=== PATIENT | male | born 1990 | race Caucasian/White ===

== ENCOUNTER 2019-11-19 09:09 | Emergency (ER) | payer MEDICAID, OTHER, SELFPAY ==
[~2019-11-19] VITALS: Ht 162.6 cm; Wt 63.5 kg
[~2019-11-19 09:09] MED LIST: ARIP10TA8 PO; ARIP400S IM; BACIO TP
[2019-11-19] MEDS ORDERED: HYDR50CA9 PO (09:45)
[2019-11-19] MEDS ORDERED: ESCI20TA PO (09:45)
[2019-11-19] MEDS ORDERED: PALI6TAB6 PO (09:45)
[2019-11-19 11:26] VITALS: BP 163/90
== END 2019-11-19 13:58 | disposition short-term general hospital (02) ==
LOC: EMS 09:10
DX: F20.9 Schizophrenia, unspecified (principal); Z73.6 Limitation of activities due to disability

== ENCOUNTER 2020-05-31 09:07 | Inpatient (IN) | payer MEDICAID, OTHER ==
[~2020-05-31] VITALS: Ht 165.1 cm; Wt 64.0 kg
[~2020-05-31 09:07] MED LIST changes: -ARIP10TA8 PO; -ARIP400S IM; -BACIO TP; +ESCI20TA87 PO; +HYDR50CA9 PO; +PALI6TAB6 PO
[2020-05-31] MEDS ORDERED: PALI9TAB15 PO (09:27)
[2020-05-31] MEDS ORDERED: LORazepam 1 MG TABLET PO ONE (09:30)
[2020-05-31] MEDS ORDERED: HALOPERIDOL 5 MG TABLET PO ONE (09:30)
[2020-05-31 14:12] LABS: AMPHET/METH SCREEN,URINE NEGATIVE (NEGATIVE); BARBITURATE SCREEN, URINE NEGATIVE (NEGATIVE); BENZODIAZEPINES SCREEN,URINE NEGATIVE (NEGATIVE); CANNABINOID SCREEN,URINE POSITIVE (NEGATIVE); COCAINE SCREEN,URINE NEGATIVE (NEGATIVE); METHADONE SCREEN, URINE NEGATIVE (NEGATIVE); OPIATE SCREEN,URINE NEGATIVE (NEGATIVE); PHENCYCLIDINE SCREEN,URINE NEGATIVE (NEGATIVE)
[2020-05-31 18:59] LABS: COVID AG,FIA SOURCE NASOPHARYNGEAL
[2020-05-31] MEDS ORDERED: ZOLPIDEM TARTRATE 10 MG TABLET PO PRN (19:15)
[2020-05-31 20:15] LABS: APPEARANCE,URINE CLEAR (CLEAR); GLUCOSE, URINE (UA) NEGATIVE (NEGATIVE); KETONES,URINE 15 mg/dL (NEGATIVE); LEUKOCYTE ESTERASE ,URINE NEGATIVE (NEGATIVE); NITRATE,URINE NEGATIVE (NEGATIVE); OCCULT BLOOD,URINE NEGATIVE (NEGATIVE); PROTEIN,URINE TRACE (NEGATIVE); UROBILINOGEN,URINE 0.2 mg/dL (<=1.0)
[2020-05-31 20:19] LABS: BILIRUBIN,URINE PRELIM. POSITIVE (NEGATIVE)
[2020-05-31 20:30] LABS: BACTERIA,URINE Few /HPF (None Seen); RBC,URINE 0-2 /HPF (0-2); WBC,URINE 0-2 /HPF (0-5)
[2020-05-31 20:31] LABS: MUCUS,URINE Few LPF (None Seen); SQUAMOUS EPITHELIAL CELL,UR Few /LPF (None Seen)
[2020-05-31 21:33] VITALS: BP 128/82
[2020-05-31] MEDS ORDERED: INFLUENZA VIRUS VACCINE QVS 2020-21 (6MO+)/PF 60 MCG/0.5 ML SYRINGE IM ONE (22:00)
[2020-06-01 06:11] VITALS: BP 122/78
[2020-06-01] MEDS ORDERED: MAGNESIUM HYDROXIDE SUSPENSION 30 ML UDCUP PO PRN (06:45)
[2020-06-01] MEDS ORDERED: LOPERAMIDE HCL 2 MG CAPSULE PO PRN (06:45)
[2020-06-01] MEDS ORDERED: ALBUTEROL SULFATE HFA 90 MCG/PUFF 8 GM INHALER IH PRN (06:45)
[2020-06-01] MEDS ORDERED: ONDANSETRON HCL 4 MG TABLET PO PRN (06:45)
[2020-06-01] MEDS ORDERED: MAG HYDROX/AL HYDROX/SIMETH ES 30 ML SUSPENSION UDCUP PO PRN (06:45)
[2020-06-01] MEDS ORDERED: GuaiFENesin/D-METHORPHAN [SUGAR-FREE] 200-20MG/10 ML SYRUP UDCUP PO PRN (06:45)
[2020-06-01] MEDS ORDERED: PETROLATUM,WHITE 28 GM JELLY TP PRN (06:45)
[2020-06-01] MEDS ORDERED: CloNIDine HCL 0.1 MG TABLET PO PRN (06:45)
[2020-06-01] MEDS ORDERED: IBUPROFEN 400 MG TABLET PO PRN (06:45)
[2020-06-01] MEDS ORDERED: ACETAMINOPHEN 325 MG TABLET PO PRN (06:45)
[2020-06-01] MEDS ORDERED: DOCUSATE SODIUM 100 MG CAPSULE PO PRN (06:45)
[2020-06-01 09:57] VITALS: BP 123/77
[2020-06-01] MEDS: LORazepam 2 MG TABLET PO PRN ×2 (13:59→18:04)
[2020-06-01 16:22] VITALS: BP 112/62
[2020-06-01] MEDS: HALOPERIDOL 5 MG TABLET PO PRN (18:04)
[2020-06-01] MEDS: NICOTINE 14 MG/24 HOUR PATCH TD PRN (18:10)
[2020-06-02 08:12] VITALS: BP 111/67
[2020-06-02] MEDS: PALIPERIDONE 9 MG ER TABLET PO SCH (08:21)
[2020-06-02 16:30] VITALS: BP 120/70
[2020-06-02] MEDS: LORazepam 2 MG TABLET PO PRN (16:50)
[2020-06-03 04:04] VITALS: BP 118/80
[2020-06-03 08:12] VITALS: BP 119/68
[2020-06-03] MEDS: PALIPERIDONE 9 MG ER TABLET PO SCH (08:43)
[2020-06-03] MEDS: LORazepam 2 MG TABLET PO PRN ×2 (08:43→13:48)
[2020-06-03] MEDS: HALOPERIDOL 5 MG TABLET PO PRN (09:11)
[2020-06-03] MEDS ORDERED: DiphenhydrAMINE HCL 50 MG/ML VIAL ONE (09:33)
[2020-06-03] MEDS ORDERED: HALOPERIDOL LACTATE 5 MG/ML VIAL ONE (09:33)
[2020-06-03] MEDS ORDERED: LORazepam 2 MG/ML VIAL ONE (09:33)
[2020-06-03] MEDS ORDERED: LORazepam 2 MG/ML VIAL IM ONE (09:45)
[2020-06-03] MEDS ORDERED: HALOPERIDOL LACTATE 5 MG/ML VIAL IM ONE (09:45)
[2020-06-03] MEDS ORDERED: DiphenhydrAMINE HCL 50 MG/ML VIAL IM ONE (09:45)
[2020-06-03] MEDS: NICOTINE 14 MG/24 HOUR PATCH TD PRN (13:48)
[2020-06-03 16:20] VITALS: BP 113/71
[2020-06-04 08:12] VITALS: BP 110/65
[2020-06-04] MEDS: LORazepam 2 MG TABLET PO PRN (09:35)
[2020-06-04] MEDS: PALIPERIDONE 9 MG ER TABLET PO SCH (09:35)
[2020-06-04] MEDS: NICOTINE 14 MG/24 HOUR PATCH TD PRN (14:30)
[2020-06-05 04:17] VITALS: BP 123/67
[2020-06-05 08:44] VITALS: BP 134/89
[2020-06-05] MEDS: PALIPERIDONE 9 MG ER TABLET PO SCH (09:16)
[2020-06-05] MEDS: NICOTINE 14 MG/24 HOUR PATCH TD PRN (09:16)
[2020-06-05] MEDS ORDERED: GABA-1181 PO (15:39)
[2020-06-05 16:16] VITALS: BP 138/78
[2020-06-05] MEDS ORDERED: GABAPENTIN 300 MG CAPSULE PO SCH (17:00)
== END 2020-06-05 18:22 | disposition home or self-care (01) | DRG 750 ==
LOC: EMS 09:36 → B3A 19:07
PROVIDERS: ADMIT Psychiatry & Neurology Psychiatry; ATTEND Psychiatry & Neurology Psychiatry
DX: F20.0 Paranoid schizophrenia (principal); F12.90 Cannabis use, unspecified, uncomplicated; F94.0 Selective mutism; F99 Mental disorder, not otherwise specified; Z20.828 Contact with and (suspected) exposure to other viral communicable diseases; Z91.14 Patient's other noncompliance with medication regimen; Z28.21 Immunization not carried out because of patient refusal; Z79.899 Other long term (current) drug therapy
CPT/HCPCS: 87426; 90686; J1200; J1630; J2060